=== PATIENT | female | born 1955 | race Caucasian/White ===

== ENCOUNTER 2019-06-17 15:14 | Emergency (ER) | payer OTHER ==
[~2019-06-17] VITALS: Ht 149.9 cm; Wt 65.8 kg
[2019-06-17 15:20] VITALS: BP 119/79; Ht 149.9 cm; Wt 65.8 kg
== END 2019-06-17 16:45 | disposition home or self-care (01) ==
LOC: ED 15:14
DX: S42.292A Other displaced fracture of upper end of left humerus, initial encounter for closed fracture (principal); W01.0XXA Fall on same level from slipping, tripping and stumbling without subsequent striking against object, initial encounter; Y93.89 Activity, other specified; Y92.89 Other specified places as the place of occurrence of the external cause; Y99.8 Other external cause status